=== PATIENT | male | born 1980 | race African-American/Black ===

== ENCOUNTER 2025-02-25 21:18 | Emergency (ER) | payer MEDICAID ==
[~2025-02-25] VITALS: Ht 182.9 cm; Wt 82.0 kg
[2025-02-25 21:21] VITALS: BP 139/86; PULSE 95; RESP 18; TEMP 36.8; O2SAT 100
== END 2025-02-25 22:01 | disposition home or self-care (01) ==
LOC: ER 21:18
DX: Z13.89 Encounter for screening for other disorder (principal); F20.9 Schizophrenia, unspecified; I48.91 Unspecified atrial fibrillation; Z88.5 Allergy status to narcotic agent
CPT/HCPCS: 99283